=== PATIENT | male | born 1960 | race Caucasian/White ===

== ENCOUNTER 2022-11-23 08:07 | Outpatient (CLI) | payer OTHER, SELFPAY ==
[2022-11-23 11:07] LABS: Albumin* 4.6 g/dL (3.3-5.0); Chloride* 103 mmol/L (96-114); Sodium* 139 mmol/L (135-149)
[2022-11-23 11:08] LABS: Potassium* 3.8 mmol/L (3.6-5.1)
[2022-11-23 11:09] LABS: Cholesterol* 153 mg/dL (90-199)
[2022-11-23 11:10] LABS: Alkaline Phosphatase* 59 U/L (40-150); Aspartate Amino Transferase* 23 U/L (12-35); Bilirubin Total* 0.5 mg/dL (0.1-1.5); Blood Urea Nitrogen* 13 mg/dL (7-30); Calcium* 9.3 mg/dL (8.4-10.6); Carbon Dioxide* 30 mmol/L (20-32); Creatinine* 0.5 mg/dL (0.5-1.5); Estimated Glomerular Filt Rate 117 ml/min; Glucose* 112 mg/dL (60-115); Total Protein* 6.9 g/dL (6.0-8.3); Triglycerides* 91 mg/dL (40-149)
[2022-11-23 11:11] LABS: Alanine Aminotransferase* 26 U/L (4-50); HDL Cholesterol* 47 mg/dL (>=40); LDL Cholesterol Calculated 88 mg/dL (<100)
[2022-11-23 11:34] LABS: PSA Screen* 1.73 ng/mL (0.10-4.00)
== END 2022-11-23 08:08 | disposition home or self-care (01) ==
LOC: NFLDREF 08:07
PROVIDERS: PCP Family Medicine; Visit Provider Family Medicine
DX: Z00.00 Encounter for general adult medical examination without abnormal findings (principal); E78.5 Hyperlipidemia, unspecified; I10 Essential (primary) hypertension; E87.6 Hypokalemia; Z12.5 Encounter for screening for malignant neoplasm of prostate
CPT/HCPCS: 80053; 80061; 84153

== ENCOUNTER 2023-08-01 10:30 | Outpatient (RCR) | payer OTHER, SELFPAY | END 2023-09-26 11:41 | disposition home or self-care (01) | PROVIDERS: PCP Family Medicine; Visit Provider Family Medicine | DX: S76.319A Strain of muscle, fascia and tendon of the posterior muscle group at thigh level, unspecified thigh, initial encounter (principal); Z51.89 Encounter for other specified aftercare | CPT/HCPCS: 97110; 97162 ==

== ENCOUNTER 2023-09-07 06:58 | Day surgery (SDC) | payer OTHER, SELFPAY ==
[2023-09-07] MEDS: BUPIVACAINE 0.5% 30 ML INJECTION (07:15)
[2023-09-07 07:26] VITALS: BMI 27.7
[2023-09-07 07:30] VITALS: BP 141/95; PULSE 60; RESP 20; TEMP 36.8; O2SAT 96
--- NOTE | 2023-09-07 07:46 | SUR.OPER ---
PATIENT QUESTIONS ANSWERED SATISFACTORILY PREOPERATIVELY.? PATIENT BROUGHT TO OR #2 PER WHEELCHAIR.? Patient positioned supine on OR #2 bed.? The perioperative?team supported arms bilaterally on arm boards. Final approval of positioning by surgeon.?
[2023-09-07 07:53] VITALS: BP 147/85; PULSE 60; RESP 16; O2SAT 95
[2023-09-07 07:59] VITALS: BP 155/90; PULSE 55; RESP 16; O2SAT 95
[2023-09-07 08:04] VITALS: BP 138/84; PULSE 55; RESP 16; O2SAT 95
[2023-09-07] MEDS: NEOMYCIN/BACITRACIN/POLYMYXIN B 1 APPLIC TOPICAL (08:06)
--- NOTE | 2023-09-07 08:08 | P.ORPRC_ITS ---
Procedure Note Date of procedure: 09/07/23 Procedure: PREOPERATIVE DIAGNOSIS: 1. Left thumb and long finger flexor tenosynovitis - trigger fingers POSTOPERATIVE DIAGNOSIS: 1. Left thumb and long finger flexor tenosynovitis - trigger fingers PROCEDURE: 1. Left thumb and long finger flexor tendon sheath open release (A1 daiana) SURGEON: Gerber Guardado MD. PROCESS CONTROL PROGRAMMER: MARY ANN Hernández ANESTHESIA: Local anesthetic 8 mL total divided between 2 digits via 50:50 mixture of 1% Lidocaine with epi and 0.5% marcaine plain EBL: 2ml IMPLANTS: None TOURNIQUET: None COMPLICATIONS: None evident INDICATIONS: The patient is a pleasant 63-year-old male who has experienced left thumb and long finger catching/triggering for number of months. It has progressively gotten worse. Given the failure of nonoperative management, and how this affects daily life, surgery was recommended. DESCRIPTION OF PROCEDURE: Following a thorough discussion of risks, benefits, and alternatives consent was obtained and the operative digit(s) was marked. The patient was brought to the operating room and placed supine on the operating table. Local anesthesia induction was undertaken in preop holding. No antibiotics were administered as this was planned to be a local case only. Proper time-out was performed identifying proper patient, site, and procedure. The operative extremity was prepped and draped in the appropriate sterile fashion using ChloraPrep. A incision was made on the palmar surface of the hand overlying the MCP joint region of the appropriate digit(s) respecting the palmar creases being cautious not to cross these perpendicularly. Sharp incision through the skin, and blunt dissection through subcutaneous tissue allowing protection of crossing neurologic structures. The A1 daiana was visualized directly. It was incised sharply with a 15 blade. It was released completely from its distal to proximal extent under direct visualization. The tendon was inspected and found to be mildly striated consistent with some friction. Otherwise, it was intact. The tendon was removed out of the wound, and further inspected. The patient was asked to manually flex and extend the digits and showed no further catching. The catching which was visualized after tourniquet inflation, was no longer evident with reproduction of a manual fist and relaxation. Closure was performed with 4- O nylon in interrupted fashion. Soft dressings were applied, and the patient was transferred to the recovery room in stable condition. PLAN: 1. Encourage elevation of the operative extremity. 2. Range of motion and icing of the fingers and hand/wrist as tolerated/needed. 3. Ibuprofen/acetaminophen and/or oxycodone as needed for pain control. 4. Follow up with PA visit in 12-16 days for wound check and suture removal.
[2023-09-07 08:09] VITALS: BP 141/85; PULSE 53; RESP 16; O2SAT 95
[2023-09-07 08:18] VITALS: BP 149/94; PULSE 54; RESP 20; TEMP 36.2; O2SAT 97
== END 2023-09-07 08:32 | disposition home or self-care (01) ==
PROVIDERS: PCP Family Medicine; Visit Provider Orthopaedic Surgery Sports Medicine
PROC: (CPT 26055; principal; 2023-09-07 08:15)
DX: M65.312 Trigger thumb, left thumb (principal); M65.332 Trigger finger, left middle finger; M65.842 Other synovitis and tenosynovitis, left hand
CPT/HCPCS: 26055 ×2; J0665

== ENCOUNTER 2023-11-30 07:29 | Outpatient (CLI) | payer OTHER, SELFPAY ==
--- OUTSIDE RECORDS SUMMARY | 2023-12-03 06:36 | XMS_ITS | Clinical Summary ---
Author Name Unknown Organization [facility] Address [place], [place] [address] Care Team Providers Care Pluck Separator Name Role Phone Marcin Funes MD Primary Care Provider [phone] Allergies Active Allergy Reactions Criticality Noted Date Comments Terbinafine *Unknown 11/21/2012 Burning Sensation Medications Medication Sig Dispensed Refills Start Date End Date Status hydrochlorothiazide 50 mg tabletIndications:h ypertension Take 50 mg by mouth once daily. In the AM Indications: HYPERTENSION 0 Active LISINOPRIL ORALIndications:Hyp ertension Take by mouth once daily. 40 mg in the AM And 20 mg in the PM Indications: Hypertension 0 Active amLODIPine (NORVASC) 10 mg tabletIndications:h ypertension Take 10 mg by mouth once daily. In the AM Indications: HYPERTENSION 0 Active olopatadine (PATANOL) 0.1 % ophthalmic solution Place 1 Drop into both eyes 2 times daily. As needed 0 Active atorvastatin (LIPITOR) 20 mg tablet Take 20 mg by mouth at bedtime. 0 04/20/2022 Active Active Problems No known active problems Immunizations Name Administration Dates Next Due Tdap 10/25/2010 Social History Tobacco Use Types Packs/Day Years Used Date Smoking Tobacco: Never Smokeless Tobacco: Former Tobacco Cessation:Counseling Given: Yes Alcohol Use Standard Drinks/Week Comments Yes 0 (1 standard drink = 0.6 oz pur e alcohol) 6 per week Sex and Gender Information Value Date Recorded Sex Assigned at Not on file Gender Identity Not on file Sexual Orientation Not on file Obstetrics History Last Filed Vital Signs Vital Sign Reading Time Taken Comments Blood Pressure 143/87 04/21/2022 9:05 AM CDT tow er Pulse 67 04/21/2022 9:05 AM CDT Temperature 36.4 ??C (97.5 ??F) 11/23/2012 12:[address] Respiratory Rate 20 09/03/2020 11:20 AM CDT Oxygen Saturation 98% 04/21/2022 9:05 AM CDT Inhaled Oxygen Concentration - - Weight 104.8 kg (231 lb) 04/21/2022 9:05 AM CDT Height 182.9 cm (6' 0.01) 11/23/2012 9:48 AM CS T Body Mass Index 31.32 11/23/2012 9:48 AM EXTRUDER OPERATOR VERTICAL Plan of Treatment Health Maintenance Due Date Last Done Comments Depression screening for age 12+ 1974 HIV for age 15-65 1977 BMI (ht and wt on same day) for age 18+ 02/19/1980 Hepatitis C screening for age 18-79 02/19/1980 Colonoscopy through age 75 2007 Lipids for age 45-75 2007 Zoster (shingles) series for age 50+ (1 of 2) 02/19/2012 Tetanus booster 10/25/2020 10/25/2010 COVID-19 vaccine series (2022-24 season) 2023 03/31/2022, 11/17/2021, 01/14/2021, Additional history exists Influenza for age 50-64 07/15/2023 Tdap Completed 10/25/2010 Pneumococcal series for age 6-64 Aged Out No longer eligible based on patient's age to complete this topic Advance Directives Latest Code Status on File Code Status Date Activated Date Inactivated Comments Full Code 11/23/2012 9:31 AM 11/23/2012 3:52 PM Care Teams Pluck Separator Relationship Specialty Start Date End Date Ailabouni, Marcin, MD [address] [place] [id number] PCP - General Family Practice 04/21/22
== END 2023-11-30 07:30 | disposition home or self-care (01) ==
LOC: NFLDREF 12-03 06:34
PROVIDERS: PCP Family Medicine; Referring Provider Family Medicine; Visit Provider Family Medicine
DX: E78.5 Hyperlipidemia, unspecified (principal); I10 Essential (primary) hypertension; Z12.5 Encounter for screening for malignant neoplasm of prostate
CPT/HCPCS: 80053; 80061; G0103

== ENCOUNTER 2024-12-05 07:45 | Outpatient (CLI) | payer OTHER, SELFPAY | END 2024-12-05 07:46 | disposition home or self-care (01) | LOC: NFLDREF 12-13 22:37 | PROVIDERS: PCP Family Medicine; Referring Provider Family Medicine; Visit Provider Family Medicine | DX: E78.5 Hyperlipidemia, unspecified (principal); I10 Essential (primary) hypertension; Z12.5 Encounter for screening for malignant neoplasm of prostate | CPT/HCPCS: 80053; 80061; G0103 ==

== ENCOUNTER 2025-01-01 08:17 | Outpatient (CLI) | payer OTHER, SELFPAY | END 2025-01-01 08:18 | disposition home or self-care (01) | LOC: NFLDREF 01-05 02:10 | PROVIDERS: PCP Family Medicine; Referring Provider Family Medicine; Visit Provider Family Medicine | DX: E87.6 Hypokalemia (principal) | CPT/HCPCS: 84132 ==

== ENCOUNTER 2025-02-22 09:15 | Outpatient (CLI) | payer OTHER, SELFPAY | END 2025-02-22 09:16 | disposition home or self-care (01) | LOC: NFLDREF 02-26 01:14 | PROVIDERS: PCP Family Medicine; Visit Provider Family Medicine | DX: E87.6 Hypokalemia (principal) | CPT/HCPCS: 84132 ==

== ENCOUNTER 2025-04-18 09:15 | Outpatient (RCR) | payer OTHER, SELFPAY | END 2025-07-25 12:18 | disposition home or self-care (01) | PROVIDERS: PCP Family Medicine; Visit Provider Family Medicine | DX: S76.301D Unspecified injury of muscle, fascia and tendon of the posterior muscle group at thigh level, right thigh, subsequent encounter (principal); Z51.89 Encounter for other specified aftercare | CPT/HCPCS: 97110; 97140; 97161 ==

== ENCOUNTER 2025-07-17 13:17 | Outpatient (CLI) | payer OTHER, SELFPAY | END 2025-07-17 13:18 | disposition home or self-care (01) | LOC: NFLDREF 13:18 | PROVIDERS: PCP Family Medicine; Visit Provider Family Medicine | DX: Z01.818 Encounter for other preprocedural examination (principal); I10 Essential (primary) hypertension | CPT/HCPCS: 80048 ==

== ENCOUNTER 2025-07-24 06:01 | Day surgery (SDC) | payer OTHER, SELFPAY ==
[2025-07-24] VITALS (20 sets, daily range): BP systolic 109–139; BP diastolic 75–97; PULSE 54–66; RESP 12–20; TEMP 36.2–36.8; O2SAT 91–96; BMI 30.7
[2025-07-24] MEDS: OXYCODONE (CR) 10 MG TAB.ER.12H PO (06:29)
[2025-07-24] MEDS: SODIUM CHLORIDE 0.9 % (FLUSH) 10 ML SYRINGE IVF (06:29)
[2025-07-24] MEDS: LACTATED RINGERS 1000 ML 1,000 ML 100 ML IV (06:29)
[2025-07-24] MEDS: ACETAMINOPHEN 500 MG TABLET 1000 MG PO (06:29)
[2025-07-24] MEDS: MIDAZOLAM HCL 1 MG/ML inj IVP (07:20)
--- NOTE | 2025-07-24 07:20 | W.PM.H&PU ---
History & Physical Update History & Physical Update H&P Reviewed and patient assessed: No changes noted
--- NOTE | 2025-07-24 07:46 | SUR.PREOP ---
TIME?OUT:?0720 PT/RN/MDA?VERIFICATION?OF?SURGICAL?SITE,?PROCEDURE,?AND?CONSENT OBTAINED?PRIOR?TO?INVASIVE?PROCEDURE.
[2025-07-24] MEDS: TRANEXAMIC ACID 100 MG/ML INJ 1000 MG IV (07:49)
--- NOTE | 2025-07-24 09:04 | P.ORPRC_ITS ---
Procedure Note Date of procedure: 07/24/25 Procedure: PREOPERATIVE DIAGNOSIS: 1. Right knee osteoarthritis, primary, severe POSTOPERATIVE DIAGNOSIS: 1. Right knee osteoarthritis, primary, severe PROCEDURE: 1. Right total knee arthroplasty SURGEON: Gerber Guardado MD. DEVELOPMENT SYSTEM EFFICIENCY MANAGER: Uriah Granado PA-C - Of note, a skilled speech assistant was critical for this case to aid in patient positioning, tissue retraction, limb manipulation/positioning, and closure. ANESTHESIA: Spinal anesthetic EBL: 100 mL IMPLANTS: DePuy J&J uncemented TKA (rotating platform) - Attune PS femur size 8 Size 7 tibia 5 mm RP poly spacer 38 mm Affixium patella TOURNIQUET: None COMPLICATIONS: None evident INDICATIONS: The patient is a pleasant 65-year-old male who has experienced severe right knee pain and difficulty bearing weight. Workup included x-rays which revealed severe osteoarthrosis in the knee. Given the deformity, the dysfunction, and the pain, as well as the failure of nonoperative management, recommendation was made for surgery. FINDINGS: Full-thickness chondral loss diffusely throughout the medial, lateral, and to a lesser degree patellofemoral compartment. Degenerative meniscus pathology medial greater than lateral. Large effusion upon entering the joint. Numerous osteophytes including posterior femur along with loose bodies. DESCRIPTION OF PROCEDURE: Following a thorough discussion of risks, benefits, and alternatives consent was obtained and the right knee was marked. The patient was brought to the operating room and placed supine on the operating table. Induction of anesthesia was undertaken. 2 g IV Ancef and 1 g tranexamic acid was administered within 1 hr of incision preoperatively. Proper time-out was performed identifying proper patient, site, procedure. The operative extremity was prepped and draped in the appropriate sterile fashion using ChloraPrep after the patient was positioned supine with all bony prominences well padded. A longitudinal, anterior, midline skin incision was made starting approximately 3cm proximal to the superior pole of the patella and advanced distal to the tibial tubercle. A sub vastus approach was utilized . After mobilizing the patella, retropatellar fatpad was resected and the synovium in the suprapatellar pouch excised to visualize the anterior femoral cortex. Patellar prep began with an initial measurement/thickness of 24 mm. It was rese cted back to approximately 14 mm. The patella prep was completed with drilling and a trial placed. Femoral preparation was performed via an intramedullary guide. Step drill allowed access into the femoral canal. The distal cutting guide was placed with 5? of valgus and 11 mm cut on the distal femur due to a 5-7 degree flexion contracture. Femur was sized using a anterior referencing guide in 3? of external rotation. This found have a best fit with the sizing noted above. The 4 in 1 cutting block was then placed, and the distal femur shaped accordingly. The box cut was then created and the trial implant inserted to confirm appropriate fit. We turned our attention to the proximal tibia. Extramedullary guide was utilized for cutting with the goal of being 90 degree cut from the mechanical axis of the tibia in the varus/valgus plane utilizing tibial crest as the primary alignment. Initially a 2 mm resection was performed from the medial tibial plateau. Ultimately, balancing was achieved in both flexion and extension in both varus and valgus. The knee was able to achieve full extension comfortably. It was sized to be a best fit with as noted above. At this stage, trial implants were removed, the tibia and femoral and patellar components were opened and inserted. The real poly (RP) spacer was opened and inserted. A 3 min Betadine soak performed. Finally, a final irrigation round with normal saline was performed. Closure performed with 0 PDS and #0 Stratafix for the quad tendon/retinaculum. 2-0 Vicryl/Stratafix for the subcutaneous and 4-0 Monocryl for subcuticular closure. Dressings were applied and the patient was awoken from anesthesia after the tourniquet deflated and transferred the PACU in stable condition. A skilled speech assistant was critical for this case to aid in patient positioning, tissue retraction, bone exposure, limb manipulation/positioning, patient safety, and closure. PLAN: 1. Weight bear as tolerated operative extremity. 2. 23 hr perioperative antibiotics. 3. Ice. 4. PT/OT consults for ambulation assistance/mobility education. 5. Social work consult for discharge planning. 6. DVT prophylaxis with at SCDs, and aspirin twice daily.
--- NOTE | 2025-07-24 09:46 | P.ANES_ITS ---
Anesthesia Charges Start Date/Time Anesthesia Start Date: 07/24/25 Anesthesia Start Time: 07:34 Stop Date/Time Anesthesia Stop Date: 07/24/25 Anesthesia Stop Time: 09:47 Coding CPT Codes CPT Codes: ANESTH KNEE ARTHROPLASTY - 73177 ([id number]) P2 - PATIENT W/MILD SYST DISEASE, QX - CRYPTOZOOLOGIST SVC W/ MD MED DIRECTION, QK - TUNNEL KILN OPERATOR 2-4 CNCRNT ANES PROC Additional Codes: Summary - Extremes of Age - Over 70 or under 1: [id number] 1 W.PM.ANESCHARGES 1 3 W.ANESAGES
--- NOTE | 2025-07-24 09:46 | W.ANESCHARGE ---
Anesthesia Charges Start Date/Time Anesthesia Start Date: 07/24/25 Anesthesia Start Time: 07:34 Stop Date/Time Anesthesia Stop Date: 07/24/25 Anesthesia Stop Time: 09:47 Coding CPT Codes CPT Codes: ANESTH KNEE ARTHROPLASTY - 78410 ([id number]) P2 - PATIENT W/MILD SYST DISEASE, QX - STUDENT UNION CONSULTANT SVC W/ MD MED DIRECTION, QK - LOAD BLOCKER 2-4 CNCRNT ANES PROC Additional Codes: Summary - Extremes of Age - Over 70 or under 1: [id number] 1 W.PM.ANESCHARGES 1 3 W.ANESAGES
--- NOTE | 2025-07-24 09:49 | P.ANES_ITS ---
Anesthesia Charges Start Date/Time Anesthesia Start Date: 07/24/25 Anesthesia Start Time: 07:34 Stop Date/Time Anesthesia Stop Date: 07/24/25 Anesthesia Stop Time: 09:47 Coding CPT Codes CPT Codes: ANESTH KNEE ARTHROPLASTY - 66199 ([id number]) QK - DRAFTER (CAD) ELECTRONIC 2-4 CNCRNT ANES PROC, QX - CAMELID FIBER SORTER SVC W/ MD MED DIRECTION, P2 - PATIENT W/MILD SYST DISEASE
--- NOTE | 2025-07-24 09:49 | W.ANESCHARGE ---
Anesthesia Charges Start Date/Time Anesthesia Start Date: 07/24/25 Anesthesia Start Time: 07:34 Stop Date/Time Anesthesia Stop Date: 07/24/25 Anesthesia Stop Time: 09:47 Coding CPT Codes CPT Codes: ANESTH KNEE ARTHROPLASTY - 75957 ([id number]) QK - ROUTE DELIVERY SUPERVISOR 2-4 CNCRNT ANES PROC, QX - CROP GRAIN OR LIVESTOCK FARMER SVC W/ MD MED DIRECTION, P2 - PATIENT W/MILD SYST DISEASE
--- NOTE | 2025-07-24 09:50 | P.NB_ITS ---
Nerve Block Nerve Block Time Seen by Provider: 07:25 Date Seen: 07/24/25 Type of block requested by surgeon for post-operative analgesia: adductor canal Side: right Time out performed: Yes Verification of patient name: Yes Verification of date of : Yes Site marking: site marked Name of person performing procedure: Abundio Continuous monitoring Was continuous monitoring of O2 sat, B/P, quality assurance monitor final, recorded every 15 minutes?: Yes Procedure Checklist: sterile prep, needles and gloves Ultrasound guided. Images saved: Yes Medications given in 5ml increments after negative aspiration: Marcaine %: 0.25 mL: 15 Needle gauge: 20 Precedex (mcg): 25 Patient tolerated procedure well: Yes Block Charges Block Charge (with Pro Fee): Femoral Nerve Use of Ultrasound Machine for Block: Yes- US Guidance/pain block
--- NOTE | 2025-07-24 09:51 | P.NB_ITS ---
Nerve Block Nerve Block Time Seen by Provider: 07:25 Date Seen: 07/24/25 Type of block requested by surgeon for post-operative analgesia: geniculars Side: right Time out performed: Yes Verification of patient name: Yes Verification of date of : Yes Site marking: site marked Name of person performing procedure: Abnudio Continuous monitoring Was continuous monitoring of O2 sat, B/P, desk monitor, recorded every 15 minutes?: Yes Procedure Checklist: sterile prep, needles and gloves Ultrasound guided. Images saved: Yes Medications given in 5ml increments after negative aspiration: Marcaine %: 0.25 mL: 9 Needle gauge: 25 Patient tolerated procedure well: Yes Block Charges Block Charge (with Pro Fee): Genicular Nerve Block
--- NOTE | 2025-07-24 09:59 | CRLHL7_ITS ---
For Patients: As a result of the Cures Act, medical imaging exams and procedure reports are released immediately into your electronic medical record. You may view this report before your referring provider. If you have questions, please contact your health care provider. Indication: Post op right TKA Technique: Two views right knee Findings/Impression: Hardware from a right total knee arthroplasty is in satisfactory position. Bone alignment is normal. No sign of acute fracture. Postop changes are within normal limits. Dictated by Brandon Way MD @ 07/24/2025 11:14:12 AM (Electronically Signed)
--- NOTE | 2025-07-24 10:30 | SUR.PHASEI ---
patient met discharge criteria per anesthesia
[2025-07-24] MEDS: IBUPROFEN 200 MG TABLET 600 MG PO (11:10)
[2025-07-24] MEDS: ACETAMINOPHEN 325 MG TABLET PO (12:46)
[2025-07-24] MEDS: LACTATED RINGERS 1000 ML 1,000 ML 35 ML IV (12:51)
== END 2025-07-24 14:20 | disposition home or self-care (01) ==
LOC: OR 06:02
PROVIDERS: PCP Family Medicine; Visit Provider Orthopaedic Surgery Sports Medicine
PROC: (CPT 27447; principal; 2025-07-24 07:30)
DX: M17.11 Unilateral primary osteoarthritis, right knee (principal); G89.18 Other acute postprocedural pain; I10 Essential (primary) hypertension; E78.5 Hyperlipidemia, unspecified
CPT/HCPCS: 27447; 01402; 64447; 64454; 73560; 76942; 97110; 97116; 97161; 97530; A9270; C1776; J0665; J0690; J2250; J3010; J7120

== ENCOUNTER 2025-09-06 13:00 | Outpatient (RCR) | payer OTHER, SELFPAY | END 2025-11-11 15:23 | disposition home or self-care (01) | PROVIDERS: PCP Family Medicine; Visit Provider Orthopaedic Surgery Sports Medicine | DX: Z47.1 Aftercare following joint replacement surgery (principal); Z96.651 Presence of right artificial knee joint; Z51.89 Encounter for other specified aftercare | CPT/HCPCS: 97110; 97116; 97161; A9270 ==

== ENCOUNTER 2025-10-16 06:13 | Day surgery (SDC) | payer OTHER, SELFPAY ==
[2025-10-16] VITALS (7 sets, daily range): BP systolic 137–167; BP diastolic 85–97; PULSE 60–70; RESP 16–20; TEMP 36.7–36.8; O2SAT 93–95; BMI 29.0
[2025-10-16] MEDS: BACITRACIN OINTMENT BULK TUBE 1 APPLIC TOPICAL (07:37)
--- NOTE | 2025-10-16 07:42 | PM.ORPRC ---
Procedure Note Date of procedure: 10/16/25 Procedure: PREOPERATIVE DIAGNOSIS: 1. Left ring finger flexor tenosynovitis - trigger finger POSTOPERATIVE DIAGNOSIS: 1. Left ring finger flexor tenosynovitis - trigger finger PROCEDURE: 1. Left ring finger flexor tendon sheath open release (A1 daiana) SURGEON: Gerber Guardado MD. PROVIDER RELATIONS SPECIALIST: MARY ANN Hernández ANESTHESIA: Local anesthetic 4ml via 50:50 mixture of 1% Lidocaine with epi and 0.5% marcaine plain EBL: 2ml IMPLANTS: None TOURNIQUET: None COMPLICATIONS: None evident INDICATIONS: The patient is a pleasant 65-year-old male who has experienced left ring finger catching/triggering for number of months. It has progressively gotten worse. Given the failure of nonoperative management, and how this affects daily life, surgery was recommended. DESCRIPTION OF PROCEDURE: Following a thorough discussion of risks, benefits, and alternatives consent was obtained and the operative digit(s) was marked. The patient was brought to the operating room and placed supine on the operating table. Local anesthesia induction was undertaken in preop holding. No antibiotics were administered as this was planned to be a local case only. Proper time-out was performed identifying proper patient, site, and procedure. The operative extremity was prepped and draped in the appropriate sterile fashion using ChloraPrep. An incision was made on the palmar surface of the hand overlying the MCP joint region of the appropriate digit(s) respecting the palmar creases being cautious not to cross these perpendicularly. Sharp incision through the skin, and blunt dissection through subcutaneous tissue allowing protection of crossing neurologic structures. The A1 daiana was visualized directly. It was incised sharply with a 15 blade. It was released completely from its distal to proximal extent under direct visualization. The tendon was inspected and found to be mildly striated consistent with some friction. Otherwise, it was intact. The tendon was removed out of the wound, and further inspected. The patient was asked to manually flex and extend the digits and showed no further catching. The catching which was visualized after tourniquet inflation, was no longer evident with reproduction of a manual fist and relaxation. Closure was performed with 4-O nylon in interrupted fashion. Soft dressings were applied, and the patient was transferred to the recovery room in stable condition. PLAN: 1. Encourage elevation of the operative extremity. 2. Range of motion and icing of the fingers and hand/wrist as tolerated/needed. 3. Ibuprofen/acetaminophen and/or oxycodone as needed for pain control. 4. Follow up with PA visit in 12-16 days for wound check and suture removal.
--- NOTE | 2025-10-16 07:49 | SUR.PHASEII ---
Upon return from the OR, patient sat directly in the recliner chair. Patient tolerated ice water and voided prior to discharge. Patient verbalized understanding of discharge instructions and readiness to be discharged.
== END 2025-10-16 07:58 | disposition home or self-care (01) ==
LOC: OR 06:16
PROVIDERS: PCP Family Medicine; Visit Provider Orthopaedic Surgery Sports Medicine
PROC: (CPT 26055; principal; 2025-10-16 07:15)
DX: M65.342 Trigger finger, left ring finger (principal); M65.842 Other synovitis and tenosynovitis, left hand
CPT/HCPCS: 26055